=== PATIENT | female | born 1980 | race Caucasian/White ===

== ENCOUNTER → 2016-05-05 | Outpatient (CLI) | payer OTHER ==
[~2016-05-05] MED LIST: ABILIFY2 MG PO; ALEVE220 MG PO; ALLEGRA-D 24HR1 T24 PO; AMITRIPTYLINE H10 M1; AMITRIPTYLINE H25 M1 PO; BCP TD; BENADRYL25 M2 PO; BENTYL 10MG10 MG/CAP PO; BUSPIRONE HCL7.5 MG PO; CELEXA40 MG PO; CLINDAMYCIN150 MG PO; CO Q-1010 MG PO; CYMBALTA; CYMBALTA 20MG20 MG PO; DUO-KAPS1 CAP PO; FLEXERIL 1010 MG/TAB PO; FLONASEALLERGY NS; HCTZ12.5TAB PO; JULEBER 28 DAY1 EACH PO; KETOROLAC10 MG PO; LORTAB 5/500 501 TAB PO; MOTRIN 600600 MG/TAB PO; MULTI VITAMINS1 TAB PO; NAPROSYN500 MG PO; NATURE'S BLEND1 T16 PO; NORCO 325 MG-51 TAB; NORCO 325 MG-51 TAB PO; NORVASC 5MG5 MG/TAB PO; PERCOCET 325 MG1 TA2 PO; PERCOCET 325 MG1 TAB PO; PREDNISONE20 MG PO; PRENATAL1 TA5 PO; PREVACID 15MG15 M1 PO; PRILOSEC10 MG PO; PRINIVIL20 MG PO; RECLIPSEN 0.151 TAB PO; SINGULAIR 110 MG/TAB PO; SKELAXIN 800MG800 MG PO; TYLENOL PM EXTR1 TA1 PO; VENTOLIN INHAL6.8 GM IH; VITAMIN D1000 IU PO; WELLBUTRIN 75MG75 MG PO; XANAX 0.5MG0.5 MG PO; ZANTAC 7575 MG PO; ZOFRAN 4MG T4 MG/TAB PO; ZOFRAN ODT4 MG PO
== END ==
LOC: COL.RAD 07:12
DX: M51.26 Other intervertebral disc displacement, lumbar region (principal); M96.1 Postlaminectomy syndrome, not elsewhere classified
CPT/HCPCS: A9585

== ENCOUNTER 2016-08-19 08:37 | Emergency (ER) | payer MEDICAID ==
[~2016-08-19] VITALS: Ht 160 cm; Wt 111.4 kg
[~2016-08-19 08:37] MED LIST changes: -AMITRIPTYLINE H25 M1 PO; -JULEBER 28 DAY1 EACH PO; -PERCOCET 325 MG1 TAB PO; -SKELAXIN 800MG800 MG PO
[2016-08-19 08:43] VITALS: TEMP 98.7
[2016-08-19] MEDS ORDERED: AMITRIPTYLINE H25 M1 PO (08:47)
[2016-08-19] MEDS ORDERED: SKELAXIN 800MG800 MG PO (08:47)
[2016-08-19] MEDS ORDERED: PERCOCET 325 MG1 TAB PO (08:47)
[2016-08-19] MEDS ORDERED: SINGULAIR 110 MG/TAB PO (08:47)
[2016-08-19] MEDS ORDERED: JULEBER 28 DAY1 EACH PO (08:48)
[2016-08-19 09:40] VITALS: BP 130/91; PULSE 102
== END 2016-08-19 09:40 | disposition home or self-care (01) ==
LOC: COL.ER 08:37
DX: S61.532A Puncture wound without foreign body of left wrist, initial encounter (principal); W22.8XXA Striking against or struck by other objects, initial encounter; Z23 Encounter for immunization

== ENCOUNTER 2017-06-23 17:02 | Emergency (ER) | payer MEDICAID, MEDICARE ==
[~2017-06-23] VITALS: Ht 160 cm; Wt 106.8 kg
[~2017-06-23 17:02] MED LIST changes: +AMITRIPTYLINE H25 M1 PO; +JULEBER 28 DAY1 EACH PO; +PERCOCET 325 MG1 TAB PO; +SKELAXIN 800MG800 MG PO
[2017-06-23 17:03] VITALS: TEMP 98.9
[2017-06-23] MEDS ORDERED: DOXYCYCLINE 10100 MG PO (17:46)
[2017-06-23] MEDS ORDERED: AFRIN 20 ML20 M1 NS (17:46)
[2017-06-23 18:04] VITALS: BP 129/99; PULSE 116
== END 2017-06-23 18:05 | disposition home or self-care (01) ==
LOC: COL.ER 17:02
DX: J32.9 Chronic sinusitis, unspecified (principal); I10 Essential (primary) hypertension; K21.9 Gastro-esophageal reflux disease without esophagitis; F41.9 Anxiety disorder, unspecified; F32.9 Major depressive disorder, single episode, unspecified; Z87.891 Personal history of nicotine dependence; Z98.890 Other specified postprocedural states

== ENCOUNTER → 2020-06-04 | Outpatient (CLI) | payer MEDICARE, MEDICAID ==
[~2020-06-04] MED LIST changes: +AFRIN 20 ML20 M1 NS; +BRINTELLIX20; +CARDIZEM 60MG T60 MG PO; +CARDIZEM SR 60M60 MG PO; +DESYREL 100MG100 MG PO; +DOXYCYCLINE 10100 MG PO; +REXULTI2 MG PO
== END ==
LOC: COL.RAD 12:50
DX: R30.0 Dysuria (principal); Z85.51 Personal history of malignant neoplasm of bladder

== ENCOUNTER 2020-08-13 10:59 | Emergency (ER) | payer MEDICARE, MEDICAID ==
[~2020-08-13] VITALS: Ht 160 cm; Wt 136.4 kg
[~2020-08-13 10:59] MED LIST changes: -BRINTELLIX20; -CARDIZEM 60MG T60 MG PO; -CARDIZEM SR 60M60 MG PO; -DESYREL 100MG100 MG PO; -REXULTI2 MG PO
[2020-08-13 11:06] VITALS: TEMP 96
[2020-08-13 11:31] LABS: BASO # 0.1 (0.0-0.2); BASO % 1.2 % (0.0-2.0); EOS # 0.2 (0.0-0.7); EOS % 2.4 % (0-4.0); GRAN # 5.4 (1.4-6.5); HEMATOCRIT 39.7 % (37.0-47.0); HEMOGLOBIN 12.4 g/dl (12.5-16.0); LYMPH # 2.8 (1.2-3.4); LYMPH % 30.1 % (20.0-51.0); MEAN CELL VOLUME 71 fl (80.0-100.0); MEAN CORPUSCULAR HEMOGLOBIN 22 pg (27.0-31.0); MEAN CORPUSCULAR HGB CONC 31 g/dl (33.0-37.0); MONO # 0.7 (0.1-0.6); MONO % 7.7 % (1.7-9.3); PLATELET COUNT 493 K/mm3 (130-400); REDCELL DISTRIBUTION WIDTH-CV 16.6 % (11.5-14.5)
[2020-08-13] MEDS ORDERED: REXULTI2 MG PO (11:40)
[2020-08-13] MEDS ORDERED: BRINTELLIX20 (11:40)
[2020-08-13 11:41] LABS: ALANINE AMINOTRANSFERASE 76 U/L (4-34); ALBUMIN 4.3 gm/dL (3.5-5.0); ALKALINE PHOSPHATASE 99 U/L (50-136); ANION GAP 11 mmol/L (7-16); AST,SGOT 132 U/L (15-37); BILIRUBIN,TOTAL 0.3 mg/dL (0.0-1.0); BLOOD UREA NITROGEN 10 mg/dL (7-17); C-REACTIVE PROTEIN 1.7 mg/dL (0.0-0.9); CALCIUM 9.3 mg/dL (8.4-10.2); CARBON DIOXIDE 21 mmol/L (22-30); CHLORIDE 103 mmol/L (98-107); CREATININE, serum 0.74 (0.52-1.25); GLUCOSE 146 mg/dL (74-106); LIPASE 85 U/L (23-300); POTASSIUM 3.7 mmol/L (3.4-5.0); SODIUM 136 mmol/L (137-145); TOTAL PROTEIN 7.6 gm/dL (6.4-8.2)
[2020-08-13] MEDS ORDERED: CARDIZEM 60MG T60 MG PO (11:41)
[2020-08-13] MEDS ORDERED: CARDIZEM SR 60M60 MG PO (11:41)
[2020-08-13] MEDS ORDERED: DESYREL 100MG100 MG PO (11:44)
[2020-08-13 11:48] LABS: PROTHROMBIN TIME 11.5 SECONDS (9.7-12.8)
[2020-08-13 11:54] LABS: TROPONIN-I < 0.012 ng/mL (0.000-0.035)
[2020-08-13 13:46] LABS: COLLECTION METHOD CLEAN CATCH
[2020-08-13 13:55] LABS: MUCOUS Present /lpf; PH 5 (5-8); SQUAMOUS EPITHELIAL 0-2 /hpf; URINE APPEARANCE Hazy; URINE BACTERIA None Seen /hpf; URINE BILIRUBIN Negative (NEGATIVE); URINE BLOOD Negative (NEGATIVE); URINE COLOR Yellow; URINE GLUCOSE Negative (NEGATIVE); URINE KETONE Negative (NEGATIVE); URINE LEUKOCYTE ESTERASE Trace (NEGATIVE); URINE NITRATE Negative (NEGATIVE); URINE PROTEIN(semi-quant) Negative (NEGATIVE); URINE RBC 0-2 /hpf; URINE UROBILINOGEN Negative (NEGATIVE)
[2020-08-13 15:26] VITALS: BP 115/75; PULSE 97
== END 2020-08-13 15:26 | disposition home or self-care (01) ==
LOC: COL.ER 10:59
PROVIDERS: Emergency Medicine
DX: R07.89 Other chest pain (principal); R00.0 Tachycardia, unspecified; I10 Essential (primary) hypertension; F41.9 Anxiety disorder, unspecified; Z88.0 Allergy status to penicillin; Z88.8 Allergy status to other drugs, medicaments and biological substances; Z79.899 Other long term (current) drug therapy
CPT/HCPCS: J2060

== ENCOUNTER → 2020-09-13 | Outpatient (CLI) | payer MEDICARE, MEDICAID ==
[~2020-09-13] MED LIST changes: +BRINTELLIX20; +CARDIZEM 60MG T60 MG PO; +CARDIZEM SR 60M60 MG PO; +DESYREL 100MG100 MG PO; +REXULTI2 MG PO
== END ==
LOC: MC.RAD 09:45
DX: Z12.31 Encounter for screening mammogram for malignant neoplasm of breast (principal)